=== PATIENT | male | born 1955 | race Caucasian/White ===

== ENCOUNTER → 2023-10-18 07:18 | Outpatient (REF) | payer BC, SELFPAY | LOC: DHCBC/DCA 07:18 | PROVIDERS: ATTENDING PHYSICIAN Internal Medicine Cardiovascular Disease; FAMILY PHYSICIAN Family Medicine | DX: I10 Essential (primary) hypertension (principal); I34.0 Nonrheumatic mitral (valve) insufficiency; R93.1 Abnormal findings on diagnostic imaging of heart and coronary circulation; R53.1 Weakness; R42 Dizziness and giddiness | CPT/HCPCS: 78452; 93017; A9500 ==

== ENCOUNTER → 2023-12-21 07:53 | Outpatient (REF) | payer BC, SELFPAY | LOC: RAD 07:53 | PROVIDERS: ATTENDING PHYSICIAN Internal Medicine Cardiovascular Disease; FAMILY PHYSICIAN Family Medicine | DX: R55 Syncope and collapse (principal); R00.2 Palpitations | CPT/HCPCS: 75574; Q9967 ==

== ENCOUNTER 2024-02-01 08:33 | Day surgery (SDC) | payer BC, SELFPAY ==
[2024-02-01] VITALS (9 sets, daily range): BP systolic 102–121; BP diastolic 64–82; BMI 28.8
[2024-02-01 09:04] LABS: Hemoglobin 14.6 g/dL (13.0-18.0); Mean Corpuscular Hgb 29.1 pg (27.0-31.0); Mean Corpuscular Volume 85.7 fL (80.0-94.0); Mean Platelet Volume 10.4 fL (7.4-10.4); Platelet Count 244 10^3/uL (130-400); Red Blood Cell Count 5.02 10^6/uL (4.70-6.10); Red Cell Dist. Width 12.9 % (11.5-14.5); White Blood Cell Count 6.2 10^3/uL (4.8-10.8)
[2024-02-01 09:39] LABS: Blood Urea Nitrogen 21 mg/dl (9-20); Carbon Dioxide 26 mmol/L (22-30); Chloride 104 mmol/L (98-107); Estimated Creatinine Clearance 79 ml/min; Glucose 102 mg/dl (70-99); Potassium 4.8 mmol/L (3.5-5.1); Sodium 141 mmol/L (135-145); eGFR > 60.00
--- NOTE | 2024-02-01 11:06 | ITS.CL.CATH ---
[employer] - Catheterization
Cardiac Catheterization
Procedure Report:
LEFT HEART CATHETERIZATION
Date of Procedure: February 01, 2024
Referring: Dr. Jay Palomares
PROCEDURES:
1. Left heart catheterization with coronary and single-plane left ventriculography
INDICATION: Calcified proximal RCA with very frequent PVCs
ACCESS: Right radial artery, 6 Upper Sorbian sheath
HEMODYNAMICS : (mmHg)
AO (s/d) : 101/61, 76
LV (s/d) : 109/9
LVEDP : 15
CORONARY FINDINGS
DOMINANCE: Right
LEFT MAIN: Normal
LEFT ANTERIOR DESCENDING: The LAD arises normally from the left main and runs in the anterior interventricular groove as a large-caliber vessel. The LAD has minor irregularities over its course but no focal obstructive stenosis. The first diagonal
branch arises from the proximal one third of the LAD and is a moderate to large caliber vessel that bifurcates in its midportion and has only minor irregularities
CIRCUMFLEX: The circumflex is a medium caliber vessel supplying 2 obtuse marginal branches which have minor irregularity
RIGHT CORONARY ARTERY: The right coronary artery is a large-caliber dominant vessel with a 30% proximal stenosis. The remainder of the RCA has only minor luminal irregularities and is a large-caliber vessel. The PDA is large. The posterolateral
branch is large
VENTRICULOGRAPHY: Left ventriculography was performed in an LAROSE projection. The digital single-plane left ventricular ejection fraction is estimated at 65%. No regional wall motion abnormalities are noted
RADIATION SUMMARY: Fluoro Time (min): 3.3, Dose (mGy): 386, DAP (Gy.cm2) : 27
Closure Device: TR band
CONCLUSIONS
1. Nonobstructive coronary disease
2. Preserved left ventricular systolic function
RECOMMENDATIONS
1. Continued medical therapy
Copy to: Dr. Jay Palomares
== END 2024-02-01 14:00 | disposition home or self-care (01) ==
LOC: CATH 08:33
PROVIDERS: ATTENDING PHYSICIAN Internal Medicine Interventional Cardiology; FAMILY PHYSICIAN Family Medicine; OTHER PHYSICIAN Internal Medicine Cardiovascular Disease
DX: I25.10 Atherosclerotic heart disease of native coronary artery without angina pectoris (principal); I10 Essential (primary) hypertension; E78.00 Pure hypercholesterolemia, unspecified; Z72.0 Tobacco use; Z79.82 Long term (current) use of aspirin
CPT/HCPCS: 80048; 85027; 93458; C1894; Q9967

== ENCOUNTER → 2024-02-07 14:01 | Outpatient (REF) | payer BC, SELFPAY | LOC: RAD 14:01 | PROVIDERS: ATTENDING PHYSICIAN Surgery Vascular Surgery; FAMILY PHYSICIAN Family Medicine | DX: I73.9 Peripheral vascular disease, unspecified (principal) | CPT/HCPCS: 93922; 93925 ==

== ENCOUNTER → 2024-04-25 08:28 | Outpatient (REF) | payer BC, SELFPAY | LOC: PAVMRI 08:28 | PROVIDERS: ATTENDING PHYSICIAN Internal Medicine Cardiovascular Disease; FAMILY PHYSICIAN Family Medicine | DX: R55 Syncope and collapse (principal) | CPT/HCPCS: 75561; 75565; A9585 ==

== ENCOUNTER → 2025-02-20 15:03 | Outpatient (REF) | payer BC, SELFPAY | LOC: RAD 15:03 | PROVIDERS: ATTENDING PHYSICIAN Surgery Vascular Surgery; FAMILY PHYSICIAN Family Medicine | DX: I73.9 Peripheral vascular disease, unspecified (principal) | CPT/HCPCS: 93922 ==